=== PATIENT | male | born 1945 ===

== ENCOUNTER 2018-06-12 08:21 | Outpatient (CLI) | payer MEDICARE | END 2018-06-12 08:22 | disposition home or self-care (01) | LOC: C.LAB 08:21 | DX: R73.01 Impaired fasting glucose (principal); E78.00 Pure hypercholesterolemia, unspecified; Z12.5 Encounter for screening for malignant neoplasm of prostate; Z00.00 Encounter for general adult medical examination without abnormal findings ==